=== PATIENT | male | born 1990 | race Native Hawaiian/Other Pacific Islander ===

== ENCOUNTER 2016-10-30 19:24 | Emergency (ER) | payer OTHER ==
--- NOTE | 2016-10-30 19:55 | ED PDOC ---
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 Patient reports to hearing and feeling a "pop" in the back of his ankle and experiencing difficulty ambulating after. He denies any additional medical complaints at this time. PMD: none provided Past Medical History Reviewed: Historical Data, Nursing Documentation, Vital Signs - Medical History PMH: No Chronic Diseases - Family History Family History: States: Unknown Family Hx - Home Medications Home Medications: Ambulatory Orders Medication Instructions Recorded Naproxen [Naprosyn Tab] 375 mg PO Q8 PRN #21 tab 10/30/16 - Allergies Allergies/Adverse Reactions: Allergies Allergy/AdvReac Type Severity Reaction Status Date / Time No Known Allergies Allergy Verified 10/30/16 19:30 Review of Systems ROS Statement: Except As Marked, All Systems Reviewed And Found Negative Musculoskeletal: Positive for: Leg Pain (left) Physical Exam - Reviewed Nursing Documentation Reviewed: Yes Vital Signs Reviewed: Yes - Physical Exam Appears: Positive for: Well, Non-toxic, No Acute Distress Extremity: Positive for: Normal ROM (limited due to pain ), Capillary Refill (< 2 seconds), Other (positive Christy test left foot. Boggy area by the posterior aspect of the left ankle. ). Negative for: Deformity, Swelling (or ecchymosis ) Neurologic/Psych: Positive for: Alert, Oriented - Progress ED Course And Treament: SEEN BY PODIATRY RESIDENT PLACED IN POSTERIOR SPLINT PATIENT TO F/U WITH DR. LAY TOMORROW Medical Decision Making Medical Decision Making: Initial Impression: Achilles tendon rupture Initial Plan: * x-ray left ankle * MRI left ankle w/o contrast * reevaluation Patient is refusing medication for pain at this time. Scribe Attestation: Documented by Sandi Montes, acting as a scribe for Елена Mñuoz PA-C. Provider Scribe Attestation: All medical record entries made by the Scribe were at my direction and personally dictated by me. I have reviewed the chart and agree that the record accurately reflects my personal performance of the history, physical exam, medical decision making, and the department course for this patient. I have also personally directed, reviewed, and agree with the discharge instructions and disposition. Disposition - Clinical Impression Clinical Impression: Achilles tendon rupture - Patient ED Disposition Is Patient to be Admitted: No - Disposition Referrals: Massimo Jon MD [Staff Provider] - Disposition: Routine/Home Disposition Time: 20:49 Condition: FAIR Additional Instructions: FOLLOW UP WITH DR. JON TOMORROW MONDAY Prescriptions: Naproxen [Naprosyn Tab] 375 mg PO Q8 PRN #21 tab PRN Reason: Pain, Moderate (4-7) Instructions: Achilles Tendon Rupture (GEN) Forms: [facility] ED School/Work Excuse
--- NOTE | 2016-10-30 21:23 | CP.PCM.CON ---
History of Present Illness - History of Present Illness History of Present Illness: 26 yo male patient with no significant PMHx was seen at bedside ED this evening concerning Left Achilles tendon rupture. Patient states that he was playing basketball with his friends and felt a pop accompanied by pain. Patient cannot ambulate due to pain, and is present with his friend. Patient denies pain to any other parts of the body. Patient denies of any N/V/F/C or SOB today Past Patient History - Past Social History Smoking Status: Never Smoked - CARDIAC Hx Cardiac Disorders: No - PSYCHIATRIC Hx Substance Use: No Meds Home Medications: Home Medication List Medication Instructions Recorded Confirmed Type Naproxen [Naprosyn Tab] 375 mg PO Q8 PRN #21 tab 10/30/16 Rx Allergies/Adverse Reactions: Allergies Allergy/AdvReac Type Severity Reaction Status Date / Time No Known Allergies Allergy Verified 10/30/16 19:30 Physical Exam - Constitutional Appears: Well, Non-toxic, No Acute Distress - Head Exam Head Exam: ATRAUMATIC - Extremities Exam Additional comments: Left lower extremity exam DERM: No open wound noted. No erythema is present. No ecchymosis is noted. No bleeding noted, no drainage. No sign of acute infection is noted. 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 Palpable dell present to posterior aspect of left foot proximal to calcaneus. Pain on palpation to posterior aspect of left foot. NEURO: Gross sensation intact - Neurological Exam Neurological exam: Alert, Oriented x3 - Psychiatric Exam Psychiatric exam: Normal Affect, Normal Mood - Skin Skin Exam: Normal Color, Warm Assessment & Plan - Assessment and Plan (Free Text) Assessment: 26 yo male patient presents with Left Achilles tendon rupture. Complete vs. partial Plan: Patient was seen, evaluated and treated with all questions and concerns addressed labs and vitals reviewed discussed with Dr. Jon Left ankle Xray suggestive of Achilles tendon rupture with disruption of Kager' s triangle MRI could not be obtained due to absence of automotive technician today Posterior-U splint was applied to Left lower extremity Patient was advised to keep the dressing clean dry and intact Patient was advised to call Dr. Jon tomorrow morning and follow up in his office tomorrow Patient was advised to stay non-weight bearing to Left lower extremity with use of crutches Patient was trained on proper use of crutches per ED Patient will follow up with Dr. Jon in his [place] Office
--- NOTE | 2016-10-31 10:31 | RAD ---
PROCEDURE: Left ankle dated 10/30/2016 HISTORY: achilles tendon rupture COMPARISON: None FINDINGS: BONES: Normal. No fracture. JOINTS: Normal. No osteoarthritis. Ankle mortise maintained. Talar dome intact SOFT TISSUES: Normal. OTHER FINDINGS: None. IMPRESSION: Normal left ankle radiographs.
== END 2016-10-30 21:24 | disposition home or self-care (01) ==
LOC: H.ER 19:24
DX: S86.012A Strain of left Achilles tendon, initial encounter (principal); X50.9XXA Other and unspecified overexertion or strenuous movements or postures, initial encounter; Y92.310 Basketball court as the place of occurrence of the external cause